=== PATIENT | male | born 1975 | race Caucasian/White ===

== ENCOUNTER → 2017-02-21 | Outpatient (CLI) | payer BC, OTHER ==
[~2017-02-21] MED LIST: PROHANCE 279.3MG/ML 15ML VIAL (A9576) As Ordered ONE; PROHANCE 279.3MG/ML 5ML VIAL (A9576) As Ordered ONE
--- NOTE | 2017-02-21 17:58 | REP ---
MRI IACS WITHOUT AND WITH CONTRAST: HISTORY: Left ear labyrinthitis. CONTRAST: ProHance 18 mL There are no areas of abnormal signal intensity in the brain. There is no intraparenchymal hemorrhage, infarct, mass or midline shift. There is no abnormal enhancement. The ventricular system is normal in appearance. There is no extracerebral collection. There is no cerebellopontine angle mass. The inner ear structures are normal in appearance. The mastoid air cells and sinuses are clear. IMPRESSION: There is no intracranial lesion. Signed by Paolo Connor MD 02/21/2017 06:15 P
== END ==
LOC: M RAD 14:57
PROVIDERS: ATTEND Otolaryngology
DX: H83.02 Labyrinthitis, left ear (principal)
CPT/HCPCS: 70553; A9576